=== PATIENT | female | born 1985 | race Caucasian/White ===

== ENCOUNTER → 2020-12-31 | Outpatient (CLI) | payer BC ==
[~2020-12-31] MED LIST: DICLOXACILLIN250 MG PO; NO HOME MEDICATIONS; PERCOCET 325 MG1 TA2 PO; PRENATAL VITAMI1 TA5 PO
== END ==
LOC: COL.RAD 10:53
DX: N93.0 Postcoital and contact bleeding (principal)

== ENCOUNTER → 2023-04-07 | Outpatient (CLI) | payer BC | LOC: MC.RAD 12:55 | DX: Z12.31 Encounter for screening mammogram for malignant neoplasm of breast (principal); N63.10 Unspecified lump in the right breast, unspecified quadrant ==

== ENCOUNTER → 2023-04-13 | Outpatient (CLI) | payer BC | LOC: MC.RAD 07:34 | DX: N63.15 Unspecified lump in the right breast, overlapping quadrants (principal) ==

== ENCOUNTER → 2023-04-25 | Outpatient (CLI) | payer BC | LOC: MC.RAD 09:41 | DX: N63.10 Unspecified lump in the right breast, unspecified quadrant (principal) | CPT/HCPCS: A4648 ==